=== PATIENT | female | born 1930 | race Two or more races ===

== ENCOUNTER → 2016-09-24 | Outpatient (CLI) | payer OTHER ==
[2016-09-24 12:12] LABS: Basophils # (auto) 0.1 uL; Basophils % (auto) 1.6 % (0.0-2.0); Eosinophils # (auto) 0.1 uL; Eosinophils % (auto) 1.4 % (0.0-7.0); Hematocrit 35.5 % (36.0-46.0); Hemoglobin 11.3 g/dL (12.2-16.2); Lymphocytes % (auto) 39.5 % (10.0-50.0); Mean Corpuscular Hemoglobin 27.4 pg (28.0-32.0); Mean Corpuscular Hgb Conc. 31.8 g/dL (32.0-36.0); Mean Corpuscular Volume 86.2 fL (80.0-100.0); Mean Platelet Volume 8.5 fL (7.4-10.4); Monocytes # (auto) 0.4 uL; Monocytes % (auto) 8.2 % (0.0-12.0); Neutrophils # (auto) 2.6 uL; Neutrophils % (auto) 49.3 % (37.0-80.0); Platelet Count (auto) 320 10^3/uL (140-450); Red Cell Distribution Width 14.9 % (11.6-16.0); White Blood Cell 5.2 10^3/uL (4.4-10.8)
[2016-09-24 13:07] LABS: Albumin 3.7 g/dL (3.4-5.0); BUN/Creatinine Ratio 27.7; Calcium 9.5 mg/dL (8.5-10.1)
[2016-09-24 13:09] LABS: Bilirubin, Total 0.3 mg/dL (0.2-1.0); Total Protein 7.2 g/dL (6.4-8.2)
== END | disposition home or self-care (01) ==
LOC: LAB 09:47
DX: M81.0 Age-related osteoporosis without current pathological fracture (principal); M06.9 Rheumatoid arthritis, unspecified; M25.50 Pain in unspecified joint; D64.9 Anemia, unspecified; I10 Essential (primary) hypertension; Z79.899 Other long term (current) drug therapy
CPT/HCPCS: 36415; 80053; 85025; 85652; 86141; 86431

== ENCOUNTER → 2017-04-12 | Outpatient (CLI) | payer OTHER ==
[2017-04-12 10:09] LABS: Basophils # (auto) 0 uL; Basophils % (auto) 0.6 % (0.0-2.0); CONDITION Y; Eosinophils # (auto) 0.1 uL; Eosinophils % (auto) 1.1 % (0.0-7.0); Hematocrit 35.8 % (36.0-46.0); Hemoglobin 12.1 g/dL (12.2-16.2); Lymphocytes # (auto) 1.9 uL; Lymphocytes % (auto) 37.4 % (10.0-50.0); Mean Corpuscular Hemoglobin 30.3 pg (28.0-32.0); Mean Corpuscular Hgb Conc. 33.6 g/dL (32.0-36.0); Mean Corpuscular Volume 90.2 fL (80.0-100.0); Mean Platelet Volume 7.9 fL (7.4-10.4); Monocytes # (auto) 0.4 uL; Monocytes % (auto) 8.6 % (0.0-12.0); Neutrophils # (auto) 2.7 uL; Neutrophils % (auto) 52.3 % (37.0-80.0); Platelet Count (auto) 308 10^3/uL (140-450); Red Cell Distribution Width 14.1 % (11.6-16.0); White Blood Cell 5.2 10^3/uL (4.4-10.8)
[2017-04-12 17:37] LABS: Albumin 3.7 g/dL (3.4-5.0); BUN/Creatinine Ratio 31.1; Calcium 9.7 mg/dL (8.5-10.1)
[2017-04-12 17:39] LABS: Bilirubin, Total 0.3 mg/dL (0.2-1.0); Total Protein 6.9 g/dL (6.4-8.2)
[2017-04-13 08:11] LABS: Rheumatoid Arthritis Factor <10.0 IU/mL (0.0-13.9)
== END | disposition home or self-care (01) ==
LOC: LAB 09:42
DX: I10 Essential (primary) hypertension (principal); M06.9 Rheumatoid arthritis, unspecified; M25.50 Pain in unspecified joint; D64.9 Anemia, unspecified; Z79.899 Other long term (current) drug therapy; Z95.5 Presence of coronary angioplasty implant and graft; Z90.721 Acquired absence of ovaries, unilateral
CPT/HCPCS: 36415; 80053; 85025; 85652; 86141; 86200; 86431

== ENCOUNTER → 2017-08-27 | Outpatient (CLI) | payer OTHER ==
[~2017-08-27] MED LIST: DOCU-94 PO; GABA100C9 PO; LANS30CA63 PO; LISI10TA6 PO; MAGN400T5 PO; RANI150C11 PO; SUCR1TAB38 OR
[2017-08-27 09:33] LABS: Basophils # (auto) 0.1 uL; Basophils % (auto) 1.1 % (0.0-2.0); Eosinophils # (auto) 0.1 uL; Eosinophils % (auto) 1.5 % (0.0-7.0); Hematocrit 34.6 % (36.0-46.0); Hemoglobin 11.5 g/dL (12.2-16.2); Lymphocytes # (auto) 1.7 uL; Lymphocytes % (auto) 36.5 % (10.0-50.0); Mean Corpuscular Hemoglobin 30.1 pg (28.0-32.0); Mean Corpuscular Hgb Conc. 33.2 g/dL (32.0-36.0); Mean Corpuscular Volume 90.8 fL (80.0-100.0); Monocytes # (auto) 0.3 uL; Monocytes % (auto) 7.4 % (0.0-12.0); Neutrophils # (auto) 2.5 uL; Neutrophils % (auto) 53.5 % (37.0-80.0); Platelet Count (auto) 344 10^3/uL (140-450); Red Blood Cells 3.81 10^6/uL (4.0-5.20); Red Cell Distribution Width 13.2 % (11.8-14.3); White Blood Cell 4.6 10^3/uL (4.4-10.8)
[2017-08-27 12:12] LABS: Albumin 3.6 g/dL (3.4-5.0); BUN/Creatinine Ratio 28.3; Bilirubin, Total 0.5 mg/dL (0.2-1.0); Calcium 9.5 mg/dL (8.5-10.1); Potassium 4.9 mmol/L (3.5-5.1); Total Protein 7.3 g/dL (6.4-8.2)
== END | disposition home or self-care (01) ==
LOC: LAB 08:38
PROVIDERS: ATTEND Physician Assistant
DX: I10 Essential (primary) hypertension (principal); E78.5 Hyperlipidemia, unspecified; M19.90 Unspecified osteoarthritis, unspecified site
CPT/HCPCS: 36415; 80053; 80061; 84443; 85025

== ENCOUNTER 2017-10-05 09:39 | Inpatient (IN) | payer OTHER ==
[~2017-10-05] VITALS: Ht 165.1 cm; Wt 62.0 kg
[2017-10-05 10:48] LABS: Basophils # (auto) 0 uL; Basophils % (auto) 0.5 % (0.0-2.0); Eosinophils # (auto) 0 uL; Eosinophils % (auto) 0.6 % (0.0-7.0); Hematocrit 36.9 % (36.0-46.0); Hemoglobin 11.8 g/dL (12.2-16.2); Lymphocytes # (auto) 2.3 uL; Lymphocytes % (auto) 44.2 % (10.0-50.0); Mean Corpuscular Hemoglobin 28.5 pg (28.0-32.0); Mean Corpuscular Hgb Conc. 31.8 g/dL (32.0-36.0); Mean Corpuscular Volume 89.6 fL (80.0-100.0); Monocytes # (auto) 0.4 uL; Monocytes % (auto) 7.4 % (0.0-12.0); Neutrophils # (auto) 2.4 uL; Neutrophils % (auto) 47.3 % (37.0-80.0); Nucleated Red Blood Cells % 0.1 %; Platelet Count (auto) 328 10^3/uL (140-450); Red Blood Cells 4.12 10^6/uL (4.0-5.20); Red Cell Distribution Width 14.5 % (11.8-14.3); White Blood Cell 5.1 10^3/uL (4.4-10.8)
[2017-10-05 11:44] LABS: Chloride 104 mmol/L (98-107); Potassium 3.7 mmol/L (3.5-5.1); Sodium 140 mmol/L (136-145)
[2017-10-05 11:53] LABS: Anion Gap 10 (5-15); BUN/Creatinine Ratio 26.2; Blood Urea Nitrogen 16 mg/dL (7-18); Calcium 9.9 mg/dL (8.5-10.1); Carbon Dioxide 26 mmol/L (21-32); GFR African American 119 mL/min; GFR Non-African American 99 mL/min; Glucose 88 mg/dL (74-106); Magnesium 2.4 mg/dL (1.6-2.6)
[2017-10-05 12:12] LABS: Alanine Aminotransferase 19 U/L (13-56); Albumin 4.1 g/dL (3.4-5.0); Alkaline Phosphatase 106 U/L (45-117); Aspartate Aminotransferase 24 U/L (15-37); Bilirubin, Total 0.3 mg/dL (0.2-1.0); Total Protein 7.8 g/dL (6.4-8.2)
[2017-10-05] MEDS ORDERED: ASPirin 81 mg TAB PO ONE (12:30)
[2017-10-05 13:46] LABS: INR 1.01 (0.9-1.15); Partial Thromboplastin Time 29.2 sec (22.64-33.71)
[2017-10-05] MEDS ORDERED: PANTOPRAZOLE 40 MG TAB PO ONE (15:00)
[2017-10-05] MEDS ORDERED: ALUM & MAG HYDROX-SIMETH LIQ(MAALOX) 30 ML PO ONE (15:15)
[2017-10-05] MEDS ORDERED: ACETAMINOPHEN 325 MG TAB PO PRN (15:15)
[2017-10-05] MEDS ORDERED: MORPHINE SULFATE 4 MG/ML SYR/VIAL IV PRN (15:15)
[2017-10-05] MEDS ORDERED: ZOLPIDEM TARTRATE 5 MG TAB PO PRN (15:15)
[2017-10-05] MEDS ORDERED: NITROGLYCERIN 0.4 MG SL TAB SL PRN ×2 (15:15)
[2017-10-05] MEDS ORDERED: MORPHINE SULF INJ 2 MG/ML SYRINGE 1ML IV PRN (15:15)
[2017-10-05] MEDS ORDERED: KETOROLAC TROMETH 30 MG/ML 1ML VIAL IV PRN (15:15)
[2017-10-05] MEDS ORDERED: LORazepam 0.5 MG TAB PO PRN (15:15)
[2017-10-05] MEDS ORDERED: ONDANSETRON HCL 4 MG/2 ML VIAL IV PRN (15:15)
[2017-10-05] MEDS ORDERED: IOHEXOL 350 MG/ML 100ML IJ ONE (15:37)
[2017-10-05] MEDS: SUCRALFATE 1 GM/10 ML ORAL SUSP PO SCH (17:15)
[2017-10-05] MEDS ORDERED: LANS30CA63 PO (17:19)
[2017-10-05] MEDS ORDERED: RANI150C11 PO (17:19)
[2017-10-05] MEDS ORDERED: MAGN400T5 PO (17:19)
[2017-10-05] MEDS ORDERED: GABA100C9 PO (17:19)
[2017-10-05] MEDS ORDERED: SUCR1TAB38 OR (17:19)
[2017-10-05] MEDS ORDERED: LISI10TA6 PO (17:19)
[2017-10-05] MEDS ORDERED: DOCU-94 PO (17:19)
[2017-10-05 20:36] VITALS: BP 137/55
[2017-10-05] MEDS: ENALAPRIL MALEATE 2.5 MG TAB PO SCH (21:18)
[2017-10-05] MEDS: SODIUM CHLOR 0.9% PF (SALINE LOCK) 10ML VIAL IV SCH (21:18)
[2017-10-05] MEDS: CARVEDILOL 3.125 MG TAB PO SCH (21:18)
[2017-10-05 22:00] VITALS: BP 125/54
[2017-10-05] MEDS ORDERED: ATORVASTATIN 20 MG TAB PO SCH (22:00)
[2017-10-06 05:00] VITALS: BP 104/50
[2017-10-06] MEDS: SUCRALFATE 1 GM/10 ML ORAL SUSP PO SCH ×3 (06:02→17:00)
[2017-10-06] MEDS: SODIUM CHLOR 0.9% PF (SALINE LOCK) 10ML VIAL IV SCH ×2 (06:02→14:08)
[2017-10-06 06:35] LABS: Basophils # (auto) 0 uL; Basophils % (auto) 0.7 % (0.0-2.0); Eosinophils # (auto) 0.1 uL; Eosinophils % (auto) 1.4 % (0.0-7.0); Hematocrit 32.7 % (36.0-46.0); Hemoglobin 10.9 g/dL (12.2-16.2); Lymphocytes # (auto) 1.4 uL; Mean Corpuscular Hemoglobin 29.5 pg (28.0-32.0); Mean Corpuscular Hgb Conc. 33.2 g/dL (32.0-36.0); Mean Corpuscular Volume 88.9 fL (80.0-100.0); Monocytes # (auto) 0.4 uL; Neutrophils # (auto) 2.1 uL; Neutrophils % (auto) 52.9 % (37.0-80.0); Platelet Count (auto) 291 10^3/uL (140-450); Red Blood Cells 3.68 10^6/uL (4.0-5.20); Red Cell Distribution Width 14.2 % (11.8-14.3)
[2017-10-06 07:02] LABS: Alanine Aminotransferase 17 U/L (13-56); Albumin 3.4 g/dL (3.4-5.0); Alkaline Phosphatase 85 U/L (45-117); Anion Gap 7 (5-15); Aspartate Aminotransferase 18 U/L (15-37); BUN/Creatinine Ratio 27.3; Bilirubin, Total 0.5 mg/dL (0.2-1.0); Blood Urea Nitrogen 15 mg/dL (7-18); Calcium 9.2 mg/dL (8.5-10.1); Carbon Dioxide 26 mmol/L (21-32); Chloride 107 mmol/L (98-107); Cholesterol 155 mg/dL (< 200); GFR African American 134 mL/min; GFR Non-African American 111 mL/min; Glucose 86 mg/dL (74-106); HDL Cholesterol 54 mg/dL (40-59); LDL Cholesterol 90 mg/dL (< 100); Magnesium 2.5 mg/dL (1.6-2.6); Potassium 3.8 mmol/L (3.5-5.1); Sodium 140 mmol/L (136-145); Total Protein 6.7 g/dL (6.4-8.2); Triglycerides 124 mg/dL (< 150)
[2017-10-06] MEDS: CARVEDILOL 3.125 MG TAB PO SCH (09:08)
[2017-10-06] MEDS: ENALAPRIL MALEATE 2.5 MG TAB PO SCH (09:08)
[2017-10-06 09:20] VITALS: BP 137/63
[2017-10-06] MEDS ORDERED: PANTOPRAZOLE 40 MG TAB PO SCH (10:00)
[2017-10-06] MEDS ORDERED: DOCUSATE SOD 100 MG CAP PO SCH (10:00)
[2017-10-06] MEDS ORDERED: ASPirin 81 mg TAB PO SCH (10:00)
[2017-10-06] MEDS ORDERED: CLOPIDOGREL BISULFATE 75 MG TAB PO SCH (10:00)
[2017-10-06 13:06] VITALS: BP 109/53
[2017-10-06 15:24] VITALS: BP 137/63
== END 2017-10-06 17:00 | disposition home or self-care (01) | DRG 313 ==
LOC: ER 09:39 → TELE 09:40 → TELE-EAST 20:00
PROVIDERS: ADMIT Internal Medicine; ATTEND Internal Medicine
DX: R07.89 Other chest pain (principal); I25.10 Atherosclerotic heart disease of native coronary artery without angina pectoris; D68.59 Other primary thrombophilia; I48.92 Unspecified atrial flutter; I48.0 Paroxysmal atrial fibrillation; I50.42 Chronic combined systolic (congestive) and diastolic (congestive) heart failure; I11.0 Hypertensive heart disease with heart failure; K29.70 Gastritis, unspecified, without bleeding; R00.1 Bradycardia, unspecified; D64.9 Anemia, unspecified; M81.0 Age-related osteoporosis without current pathological fracture; H53.8 Other visual disturbances; Z82.0 Family history of epilepsy and other diseases of the nervous system; Z83.3 Family history of diabetes mellitus; Z79.899 Other long term (current) drug therapy; Z95.5 Presence of coronary angioplasty implant and graft; Z88.5 Allergy status to narcotic agent
CPT/HCPCS: 36415; 71045; 71275; 80053; 80061; 83735; 83880; 84443; 84484; 85025; 85379; 85610; 85730; 93005; 93306; 94761; J2405

== ENCOUNTER → 2018-04-04 | Outpatient (CLI) | payer OTHER ==
[2018-04-04 16:57] LABS: CRP High Sensitivity 0.02 mg/dL (< 0.3)
== END | disposition home or self-care (01) ==
LOC: LAB 15:59
PROVIDERS: ATTEND Internal Medicine Rheumatology
DX: M06.9 Rheumatoid arthritis, unspecified (principal); M15.0 Primary generalized (osteo)arthritis; I10 Essential (primary) hypertension
CPT/HCPCS: 36415; 82550; 85652; 86038; 86141; 86200; 86431

== ENCOUNTER 2018-05-20 16:47 | Observation (INO) | payer OTHER ==
[~2018-05-20] VITALS: Ht 165.1 cm; Wt 54.0 kg
[2018-05-20 18:27] LABS: Basophils # (auto) 0 uL; Basophils % (auto) 0.3 % (0.0-2.0); Eosinophils # (auto) 0.1 uL; Eosinophils % (auto) 0.8 % (0.0-7.0); Hematocrit 35.7 % (36.0-46.0); Hemoglobin 11.8 g/dL (12.2-16.2); Lymphocytes % (auto) 9.4 % (10.0-50.0); Mean Corpuscular Hemoglobin 29.4 pg (28.0-32.0); Mean Corpuscular Hgb Conc. 33.2 g/dL (32.0-36.0); Mean Corpuscular Volume 88.5 fL (80.0-100.0); Monocytes # (auto) 1.6 uL; Monocytes % (auto) 14.4 % (0.0-12.0); Neutrophils # (auto) 8.4 uL; Neutrophils % (auto) 75.1 % (37.0-80.0); Nucleated Red Blood Cells % 0.1 %; Platelet Count (auto) 242 10^3/uL (140-450); Red Blood Cells 4.03 10^6/uL (4.0-5.20); Red Cell Distribution Width 15.3 % (11.8-14.3); White Blood Cell 11.2 10^3/uL (4.4-10.8)
[2018-05-20 18:43] LABS: Alanine Aminotransferase 36 U/L (13-56); Albumin 3.2 g/dL (3.4-5.0); Anion Gap 11 (5-15); Aspartate Aminotransferase 28 U/L (15-37); BUN/Creatinine Ratio 19.6; Blood Urea Nitrogen 22 mg/dL (7-18); Calcium 9.8 mg/dL (8.5-10.1); Carbon Dioxide 21 mmol/L (21-32); Chloride 101 mmol/L (98-107); GFR African American 59 mL/min; GFR Non-African American 49 mL/min; Glucose 87 mg/dL (74-106); Potassium 4.8 mmol/L (3.5-5.1); Sodium 133 mmol/L (136-145)
[2018-05-20 18:48] LABS: Alkaline Phosphatase 109 U/L (45-117); Bilirubin, Total 0.3 mg/dL (0.2-1.0); Total Protein 7.2 g/dL (6.4-8.2)
[2018-05-20 18:51] LABS: Urine Bacteria NONE SEEN /hpf (None Seen); Urine Blood Negative /uL (Negative); Urine Hyaline Cast FEW /lpf (0 - 2); Urine Specific Gravity 1.021 (1.001-1.035); Urine WBC 1 /hpf (0 - 5)
[2018-05-20] MEDS ORDERED: SODIUM CHLORIDE 0.9% 1,000 ML IVB ONE (19:05)
[2018-05-20] MEDS ORDERED: ONDANSETRON HCL 4 MG/2 ML VIAL IV ONE (19:15)
[2018-05-20 20:32] LABS: Magnesium 2.1 mg/dL (1.6-2.6)
[2018-05-20 20:44] LABS: INR 1.17 (0.9-1.15); Partial Thromboplastin Time 24.4 sec (23.78-33.04); Prothrombin Time 12.4 sec (9.27-12.13)
[2018-05-20] MEDS ORDERED: ACETAMINOPHEN 325 MG TAB PO ONE (21:30)
[2018-05-20 23:09] VITALS: BP 105/56
== END 2018-05-20 23:07 | disposition home or self-care (01) | DRG 392 ==
LOC: ER 16:54 → OVERFLOW 16:55 → ER 23:07
PROVIDERS: ADMIT Family Medicine; ATTEND Family Medicine
DX: R10.13 Epigastric pain (principal); R53.1 Weakness; D64.9 Anemia, unspecified; K21.9 Gastro-esophageal reflux disease without esophagitis; I10 Essential (primary) hypertension; E78.5 Hyperlipidemia, unspecified; M19.90 Unspecified osteoarthritis, unspecified site; Z83.3 Family history of diabetes mellitus; Z88.8 Allergy status to other drugs, medicaments and biological substances
CPT/HCPCS: 36415; 71045; 74176; 80053; 81001; 82150; 83690; 83735; 84484; 85025; 85610; 85730; 93005; 99285; G0378; J7030; J2405

== ENCOUNTER 2018-05-22 23:28 | Emergency (ER) | payer OTHER ==
[~2018-05-22] VITALS: Ht 160 cm; Wt 54.0 kg
[2018-05-23] MEDS ORDERED: ONDANSETRON HCL 4 MG/2 ML VIAL IV ONE ×2 (00:15→05:15)
[2018-05-23 01:09] LABS: Basophils # (auto) 0.2 uL; Basophils % (auto) 1.3 % (0.0-2.0); Eosinophils # (auto) 0 uL; Eosinophils % (auto) 0.3 % (0.0-7.0); Hematocrit 34.9 % (36.0-46.0); Hemoglobin 11.4 g/dL (12.2-16.2); Lymphocytes # (auto) 1.6 uL; Mean Corpuscular Hemoglobin 28.8 pg (28.0-32.0); Mean Corpuscular Hgb Conc. 32.7 g/dL (32.0-36.0); Mean Corpuscular Volume 88.2 fL (80.0-100.0); Monocytes % (auto) 7.3 % (0.0-12.0); Neutrophils # (auto) 10.3 uL; Neutrophils % (auto) 79.1 % (37.0-80.0); Platelet Count (auto) 292 10^3/uL (140-450); Red Blood Cells 3.96 10^6/uL (4.0-5.20); Red Cell Distribution Width 15.1 % (11.8-14.3); White Blood Cell 13.1 10^3/uL (4.4-10.8)
[2018-05-23 01:40] LABS: BUN/Creatinine Ratio 23.8; Calcium 9.7 mg/dL (8.5-10.1); Potassium 4.2 mmol/L (3.5-5.1)
[2018-05-23 01:43] LABS: Bilirubin, Total 0.3 mg/dL (0.2-1.0); Total Protein 7.4 g/dL (6.4-8.2)
[2018-05-23 02:13] LABS: Urine Amorphous Crystal MOD /hpf (None Seen); Urine Bacteria MOD /hpf (None Seen); Urine Blood Negative /uL (Negative); Urine Hyaline Cast FEW /lpf (0 - 2); Urine Mucus FEW (None Seen); Urine Specific Gravity 1.022 (1.001-1.035); Urine WBC 2 /hpf (0 - 5)
[2018-05-23] MEDS ORDERED: PANTOPRAZOLE 40 MG/10 ML VIAL IV ONE (05:15)
[2018-05-23] MEDS ORDERED: fentaNYL CITRATE 100 MCG/2 ML VL IV ONE (05:15)
[2018-05-23] MEDS ORDERED: PIPERACILLIN-TAZOB 3.375GM 100 ML IV ONE (07:15)
[2018-05-23 08:52] LABS: Blood Alcohol < 3.0 mg/dL (0-5); Lactate Dehydrogenase 344 U/L (84-246)
[2018-05-23] MEDS ORDERED: IBUPROFEN 600 MG TAB PO ONE (11:00)
[2018-05-23] MEDS ORDERED: METF-370 PO (14:19)
[2018-05-23] MEDS ORDERED: SODIUM CHLORIDE 0.9% 1,000 ML IV ONE (14:30)
[2018-05-23 14:39] VITALS: BP 122/66
== END 2018-05-23 06:08 | disposition short-term general hospital (02) ==
LOC: ER 23:32
DX: K63.89 Other specified diseases of intestine (principal); I10 Essential (primary) hypertension; K21.9 Gastro-esophageal reflux disease without esophagitis; Z88.6 Allergy status to analgesic agent
CPT/HCPCS: 36415; 71045; 74176; 80053; 80320; 81001; 82150; 83615; 83690; 85025; 93005; 94761; 96365; 96375; 96376; 99291; C9113; J2405; J2543; J3010

== ENCOUNTER 2018-05-26 13:05 | Inpatient (IN) | payer OTHER ==
[~2018-05-26] VITALS: Ht 165.1 cm; Wt 57.5 kg
[~2018-05-26 13:05] MED LIST changes: +METF-370 PO
[2018-05-26] MEDS ORDERED: SODIUM CHLORIDE 0.9% 1,000 ML IVB ONE (13:13)
[2018-05-26 14:04] LABS: Basophils # (auto) 0.1 uL; Basophils % (auto) 0.6 % (0.0-2.0); Eosinophils # (auto) 0 uL; Eosinophils % (auto) 0.4 % (0.0-7.0); Hematocrit 34.3 % (36.0-46.0); Hemoglobin 10.9 g/dL (12.2-16.2); Lymphocytes # (auto) 1.2 uL; Lymphocytes % (auto) 11.8 % (10.0-50.0); Mean Corpuscular Hemoglobin 28.7 pg (28.0-32.0); Mean Corpuscular Hgb Conc. 31.9 g/dL (32.0-36.0); Mean Corpuscular Volume 89.9 fL (80.0-100.0); Monocytes % (auto) 9.6 % (0.0-12.0); Neutrophils % (auto) 77.6 % (37.0-80.0); Nucleated Red Blood Cells % 0.1 %; Platelet Count (auto) 341 10^3/uL (140-450); Red Blood Cells 3.81 10^6/uL (4.0-5.20); Red Cell Distribution Width 15.5 % (11.8-14.3); White Blood Cell 10.3 10^3/uL (4.4-10.8)
[2018-05-26 14:24] LABS: Albumin 2.5 g/dL (3.4-5.0); BUN/Creatinine Ratio 31.1; Bilirubin, Total 0.4 mg/dL (0.2-1.0); Calcium 8.9 mg/dL (8.5-10.1); Magnesium 2.4 mg/dL (1.6-2.6); Potassium 4.1 mmol/L (3.5-5.1); Total Protein 6.8 g/dL (6.4-8.2)
[2018-05-26 15:15] LABS: Urine Bacteria FEW /hpf (None Seen); Urine Blood Negative /uL (Negative); Urine Mucus FEW (None Seen); Urine Specific Gravity 1.024 (1.001-1.035); Urine WBC 4 /hpf (0 - 5)
[2018-05-26 15:17] LABS: Urine Hyaline Cast FEW /lpf (0 - 2)
[2018-05-26] MEDS ORDERED: LORazepam 0.5 MG TAB PO PRN (16:30)
[2018-05-26] MEDS ORDERED: ONDANSETRON HCL 4 MG/2 ML VIAL IV PRN (16:30)
[2018-05-26] MEDS ORDERED: LACTULOSE 20Gm/30ML SOLN PO PRN (16:30)
[2018-05-26] MEDS ORDERED: DEXTROSE (50%) 50ML SYRG IV PRN (16:30)
[2018-05-26] MEDS ORDERED: NITROGLYCERIN 0.4 MG SL TAB SL PRN (16:30)
[2018-05-26] MEDS ORDERED: cefTRIAXone 1GM/10ml IVPUSH 10 ML IV ONE (16:30)
[2018-05-26] MEDS ORDERED: MORPHINE SULFATE 4 MG/ML SYR/VIAL IV PRN ×3 (16:30)
[2018-05-26 17:22] LABS: CRP High Sensitivity 5.13 mg/dL (< 0.3)
[2018-05-26] MEDS: SODIUM CHLORIDE 0.9% 1,000 ML IV SCH (17:44)
[2018-05-26] MEDS: DIGOXIN (250MCG/ML) 2 ML AMPULE IV SCH ×2 (17:44→22:22)
[2018-05-26] MEDS: SUCRALFATE 1 GM TAB PO SCH ×2 (17:45→22:18)
[2018-05-26] MEDS: ACCU-CHEK COMFORT CURVE STRIP VI SCH (18:12)
[2018-05-26 20:45] VITALS: BP 101/49
[2018-05-26 22:00] VITALS: BP 101/49
[2018-05-26] MEDS: HYDROXYCHLOROQUINE SULFATE 200 MG TAB PO SCH (22:18)
[2018-05-26] MEDS: GABAPENTIN 100 MG CAP PO SCH (22:18)
[2018-05-27] VITALS (7 sets, daily range): BP systolic 97–127; BP diastolic 42–57
[2018-05-27] MEDS: ACCU-CHEK COMFORT CURVE STRIP VI SCH ×3 (00:06→12:07)
[2018-05-27] MEDS ORDERED: HYDR200T36 PO (01:16)
[2018-05-27] MEDS ORDERED: PANT1INJ3 PO (01:16)
[2018-05-27] MEDS ORDERED: CARV3.1240 PO (01:16)
[2018-05-27] MEDS ORDERED: ASPI81TA27 PO (01:16)
[2018-05-27] MEDS ORDERED: ATOR20TA50 PO (01:16)
[2018-05-27] MEDS ORDERED: SERT-274 PO (01:17)
[2018-05-27] MEDS: SODIUM CHLORIDE 0.9% 1,000 ML IV SCH ×3 (02:23→21:39)
[2018-05-27] MEDS: DIGOXIN (250MCG/ML) 2 ML AMPULE IV SCH (04:53)
[2018-05-27] MEDS: SUCRALFATE 1 GM TAB PO SCH ×4 (06:31→21:31)
[2018-05-27 07:05] LABS: Basophils # (auto) 0.1 uL; Basophils % (auto) 0.6 % (0.0-2.0); Eosinophils # (auto) 0.1 uL; Eosinophils % (auto) 1.3 % (0.0-7.0); Hematocrit 30.3 % (36.0-46.0); Hemoglobin 10.2 g/dL (12.2-16.2); Lymphocytes # (auto) 0.9 uL; Lymphocytes % (auto) 10.6 % (10.0-50.0); Mean Corpuscular Hemoglobin 29.6 pg (28.0-32.0); Mean Corpuscular Hgb Conc. 33.7 g/dL (32.0-36.0); Monocytes # (auto) 0.9 uL; Monocytes % (auto) 10.7 % (0.0-12.0); Neutrophils # (auto) 6.5 uL; Neutrophils % (auto) 76.8 % (37.0-80.0); Nucleated Red Blood Cells % 0.1 %; Platelet Count (auto) 343 10^3/uL (140-450); Red Blood Cells 3.44 10^6/uL (4.0-5.20); Red Cell Distribution Width 15.1 % (11.8-14.3); White Blood Cell 8.4 10^3/uL (4.4-10.8)
[2018-05-27 07:36] LABS: Cholesterol 67 mg/dL (< 200); HDL Cholesterol 28 mg/dL (40-59); LDL Cholesterol 38 mg/dL (< 100); Triglycerides 56 mg/dL (< 150)
[2018-05-27 07:47] LABS: Albumin 2.2 g/dL (3.4-5.0); BUN/Creatinine Ratio 42.9; Bilirubin, Total 0.4 mg/dL (0.2-1.0); Calcium 8.2 mg/dL (8.5-10.1); Potassium 3.8 mmol/L (3.5-5.1); Total Protein 5.9 g/dL (6.4-8.2)
[2018-05-27] MEDS: traMADol HCL 50 MG TAB PO PRN ×4 (08:08→21:33)
[2018-05-27] MEDS: MAGNESIUM OXIDE 400 MG TAB PO SCH (09:34)
[2018-05-27] MEDS: ASPirin 81 mg TAB PO SCH (09:34)
[2018-05-27] MEDS: HYDROXYCHLOROQUINE SULFATE 200 MG TAB PO SCH ×2 (09:36→21:32)
[2018-05-27] MEDS: DIGOXIN 0.125 MG TAB PO SCH (09:36)
[2018-05-27] MEDS: SERTRALINE HCL 50 MG TAB PO SCH (09:36)
[2018-05-27] MEDS: GABAPENTIN 100 MG CAP PO SCH ×2 (09:37→21:31)
[2018-05-27] MEDS: cefTRIAXone 1GM/10ml IVPUSH 10 ML IV SCH (09:37)
[2018-05-27] MEDS ORDERED: DOCUSATE SOD 100 MG CAP PO SCH (10:00)
[2018-05-27] MEDS ORDERED: PANTOPRAZOLE 40 MG TAB PO SCH (10:00)
[2018-05-27] MEDS ORDERED: MAGNESIUM CITRATE SOLUTION 300 ML BTL PO ONE (14:00)
[2018-05-27] MEDS: Ensure Enlive Chocolate 8oz Bottle PO SCH (17:46)
[2018-05-27] MEDS: DOCUSATE SOD 100 MG CAP PO SCH (21:32)
[2018-05-27] MEDS: PANTOPRAZOLE 40 MG TAB PO SCH (21:32)
[2018-05-28] VITALS (8 sets, daily range): BP systolic 87–99; BP diastolic 36–50
[2018-05-28] MEDS: traMADol HCL 50 MG TAB PO PRN ×2 (03:45→20:34)
[2018-05-28] MEDS: SUCRALFATE 1 GM TAB PO SCH ×4 (07:08→21:22)
[2018-05-28] MEDS: DIGOXIN 0.125 MG TAB PO SCH (10:00)
[2018-05-28] MEDS: SODIUM CHLORIDE 0.9% 1,000 ML IV SCH ×3 (10:16→20:36)
[2018-05-28] MEDS: Ensure Enlive Chocolate 8oz Bottle PO SCH ×3 (10:16→17:11)
[2018-05-28] MEDS: ASPirin 81 mg TAB PO SCH (10:17)
[2018-05-28] MEDS: SERTRALINE HCL 50 MG TAB PO SCH (10:17)
[2018-05-28] MEDS: MAGNESIUM OXIDE 400 MG TAB PO SCH (10:17)
[2018-05-28] MEDS: cefTRIAXone 1GM/10ml IVPUSH 10 ML IV SCH (10:17)
[2018-05-28] MEDS: DOCUSATE SOD 100 MG CAP PO SCH ×2 (10:18→21:21)
[2018-05-28] MEDS: HYDROXYCHLOROQUINE SULFATE 200 MG TAB PO SCH ×2 (10:18→21:22)
[2018-05-28] MEDS: GABAPENTIN 100 MG CAP PO SCH ×2 (10:18→21:22)
[2018-05-28] MEDS: PANTOPRAZOLE 40 MG TAB PO SCH ×2 (10:18→21:23)
[2018-05-28] MEDS: TEMAZEPAM 15 MG CAP PO PRN (21:22)
[2018-05-29] VITALS (7 sets, daily range): BP systolic 92–102; BP diastolic 40–61
[2018-05-29] MEDS: SUCRALFATE 1 GM TAB PO SCH ×4 (06:51→21:51)
[2018-05-29] MEDS: Ensure Enlive Chocolate 8oz Bottle PO SCH ×3 (08:39→16:47)
[2018-05-29] MEDS: MAGNESIUM OXIDE 400 MG TAB PO SCH (09:41)
[2018-05-29] MEDS: DOCUSATE SOD 100 MG CAP PO SCH ×2 (09:41→21:52)
[2018-05-29] MEDS: HYDROXYCHLOROQUINE SULFATE 200 MG TAB PO SCH ×2 (09:42→21:52)
[2018-05-29] MEDS: PANTOPRAZOLE 40 MG TAB PO SCH ×2 (09:42→21:52)
[2018-05-29] MEDS: ASPirin 81 mg TAB PO SCH (09:43)
[2018-05-29] MEDS: GABAPENTIN 100 MG CAP PO SCH ×2 (09:43→21:52)
[2018-05-29] MEDS: SERTRALINE HCL 50 MG TAB PO SCH (09:43)
[2018-05-29] MEDS ORDERED: POTASSIUM CHL 20 Meq TABLET PO ONE (11:00)
[2018-05-29] MEDS: SODIUM CHLORIDE 0.9% 1,000 ML IV SCH ×2 (11:49→21:58)
[2018-05-29] MEDS: TEMAZEPAM 15 MG CAP PO PRN (21:51)
[2018-05-30 04:33] VITALS: BP 124/61
[2018-05-30 05:49] LABS: Basophils # (auto) 0.1 uL; Basophils % (auto) 0.7 % (0.0-2.0); Eosinophils # (auto) 0.1 uL; Eosinophils % (auto) 1.1 % (0.0-7.0); Hematocrit 27.1 % (36.0-46.0); Hemoglobin 9.2 g/dL (12.2-16.2); Lymphocytes # (auto) 1.8 uL; Lymphocytes % (auto) 23.9 % (10.0-50.0); Mean Corpuscular Hemoglobin 29.6 pg (28.0-32.0); Mean Corpuscular Hgb Conc. 33.9 g/dL (32.0-36.0); Mean Corpuscular Volume 87.3 fL (80.0-100.0); Monocytes # (auto) 0.7 uL; Monocytes % (auto) 9.8 % (0.0-12.0); Neutrophils # (auto) 4.9 uL; Neutrophils % (auto) 64.5 % (37.0-80.0); Nucleated Red Blood Cells % 0.2 %; Platelet Count (auto) 385 10^3/uL (140-450); Red Cell Distribution Width 15.2 % (11.8-14.3); White Blood Cell 7.7 10^3/uL (4.4-10.8)
[2018-05-30 06:42] LABS: BUN/Creatinine Ratio 20.5; Calcium 8.4 mg/dL (8.5-10.1); Potassium 4.2 mmol/L (3.5-5.1)
[2018-05-30] MEDS: SUCRALFATE 1 GM TAB PO SCH ×2 (06:59→12:05)
[2018-05-30 09:00] VITALS: BP 95/47
[2018-05-30] MEDS: DOCUSATE SOD 100 MG CAP PO SCH (09:50)
[2018-05-30] MEDS: Ensure Enlive Chocolate 8oz Bottle PO SCH ×2 (09:50→12:17)
[2018-05-30] MEDS: MAGNESIUM OXIDE 400 MG TAB PO SCH (09:50)
[2018-05-30] MEDS: SERTRALINE HCL 50 MG TAB PO SCH (09:50)
[2018-05-30] MEDS: PANTOPRAZOLE 40 MG TAB PO SCH (09:50)
[2018-05-30] MEDS: ASPirin 81 mg TAB PO SCH (09:51)
[2018-05-30] MEDS: GABAPENTIN 100 MG CAP PO SCH (09:51)
[2018-05-30] MEDS: HYDROXYCHLOROQUINE SULFATE 200 MG TAB PO SCH (09:51)
[2018-05-30 13:00] VITALS: BP 96/44
== END 2018-05-30 15:45 | disposition home health service (06) | DRG 314 ==
LOC: EDBD 13:05 → ER 13:06 → TELE 13:07 → TELE-WESTW 20:40
PROVIDERS: ADMIT Internal Medicine; ATTEND Internal Medicine
DX: I95.9 Hypotension, unspecified (principal); E43 Unspecified severe protein-calorie malnutrition; N39.0 Urinary tract infection, site not specified; K55.9 Vascular disorder of intestine, unspecified; K55.1 Chronic vascular disorders of intestine; M48.56XA Collapsed vertebra, not elsewhere classified, lumbar region, initial encounter for fracture; D64.9 Anemia, unspecified; E78.5 Hyperlipidemia, unspecified; E86.0 Dehydration; F32.9 Major depressive disorder, single episode, unspecified; F41.9 Anxiety disorder, unspecified; I11.9 Hypertensive heart disease without heart failure; I48.91 Unspecified atrial fibrillation; K21.9 Gastro-esophageal reflux disease without esophagitis; K59.00 Constipation, unspecified; M06.9 Rheumatoid arthritis, unspecified; Z66 Do not resuscitate; Z82.0 Family history of epilepsy and other diseases of the nervous system; Z82.49 Family history of ischemic heart disease and other diseases of the circulatory system; Z82.62 Family history of osteoporosis; Z83.3 Family history of diabetes mellitus; Z90.49 Acquired absence of other specified parts of digestive tract; Z88.8 Allergy status to other drugs, medicaments and biological substances; Z88.5 Allergy status to narcotic agent; Z79.82 Long term (current) use of aspirin; Z79.899 Other long term (current) drug therapy; Z68.21 Body mass index [BMI] 21.0-21.9, adult
CPT/HCPCS: 36415; 51702; 71045; 74176; 80048; 80053; 80061; 81001; 82150; 82607; 82962; 83036; 83605; 83690; 83735; 83880; 84443; 84484; 85025; 85379; 85652; 86141; 87081; 87086; 93005; 93306; 94761; 96361; 96374; 96375; J0696; J2405